=== PATIENT | male | born 1980 | race Caucasian/White ===

== ENCOUNTER → 2016-12-30 | Day surgery (SDC) | payer OTHER ==
[~2016-12-30] MED LIST: BUPIVACAINE HCL PF 0.25% 30 ML VIAL ONE; BUPIVACAINE/EPINEPHRINE 0.5% PF 30 ML VIAL ONE; CIPR500T4 PO; KETOROLAC TROMETHAMINE 30 MG/ML (IVP) VIAL IV PUSH ONE; LACTATED RINGER'S 1000 ML INJ 1,000 ML ONE; LIDOCAINE 1.5%/EPINEPHrine 1:200,000 PF SOLN 30 ML AMP ONE; MIDAZOLAM HCL 2 MG/2 ML VIAL ONE; ONDANSETRON HCL 4 MG/2 ML VIAL IV PUSH ONE; PROPOFOL 200 MG/20 ML AMP IV ONE; RANI300T PO; SODIUM CHLORIDE 0.9% INJ 10 ML ONE; ZYRT10TA12 PO
--- NOTE | 2016-12-30 18:48 | TN ---
cc: REENA PATEL M.D. DATE OF SURGERY 12/30/2016 PREOPERATIVE DIAGNOSIS Lipomatous masses of the mid abdomen, right forearm, left forearm, right lateral back, right medial back, right lower back. PROCEDURE Excision of lipomatous masses-1) midabdomen 4 cm with two-layer closure.2) Right forearm 3 cm with single layer closure. 3) Left forearm 3 cm with single layer closure. 4) Right lateral back 4 cm with two-layer closure. 5) Right medial back 5 cm with two-layer closure. 6) Right lower back 4 cm with two-layer closure. SURGEON Dr. Reena Patel ANESTHESIA General. INDICATIONS This is a pleasant 36-year-old gentleman who has developed multiple palpable subcutaneous masses consistent with lipomas who has had increase in size in the masses and discomfort associated with the masses. He is desirous of surgical excision. INTRAOPERATIVE FINDINGS Successful removal of the masses as discussed above. All sent to pathology for permanent section. ESTIMATED BLOOD LOSS Less than 5 ml. DESCRIPTION OF PROCEDURE IN DETAIL The patient identified as Lopez Colunga taken to the operating room and placed in the supine position. Sequential compression devices were placed on bilateral lower extremities. Following induction of adequate general anesthesia with a laryngeal mask, a time-out procedure was performed. Following completion of time-out procedure to everyone's satisfaction within the room, the patient's abdomen and bilateral upper extremities were prepped and draped in usual sterile fashion with Betadine. Proposed incisions were made with a marking pen and local anesthetic 0.5% Marcaine with epinephrine was infiltrated. The attention was turned first to the abdomen. A transverse incision was made overlying the palpable mass with a scalpel and hemostasis controlled with electrocautery. The mass was from surrounding subcutaneous fatty tissue using Metzenbaum scissors spreading tissue and the mass popped out of the wound and was completely divided from adventitial tissue posteriorly using scissors. The mass was passed off field for pathologic evaluation. Small bleeding points were controlled with electrocautery. Once the wound was assured to be dry, it was closed in two layers with 3-0 Vicryl and 4-0 Monocryl. It was dressed with Mastisol and one-half inch brown Steri-Strips. Attention was turned to the right forearm. Local anesthetic was placed and the incision was carried out with scalpel overlying the palpable subcutaneous mass. The mass was from surrounding tissues using Metzenbaum scissors, spreading and cutting adventitial tissue. The mass was then squeezed out of the wound and posterior attachments divided with scissors. Mass was passed off field for pathologic evaluation. Small bleeding points were controlled with electrocautery. The wound was closed with interrupted inverted 4-0 Monocryl subcuticular sutures and dressed with Mastisol and one-half inch brown Steri-Strips. Attention was turned to the left forearm. The proposed incision was infiltrated with local anesthetic and carried out with scalpel. The subcutaneous palpable lipomatous mass was from surrounding tissues using Metzenbaum scissors and it popped out of the wound and was removed in its entirety as the other two masses were. Small bleeding points were controlled with electrocautery. Once the wound was assured to be dry, it was closed with interrupted, inverted 4-0 Monocryl subcuticular sutures and dressed with Mastisol and one-half inch brown Steri-Strips. The patient was then placed in the left lateral decubitus position with an axillary roll and all pressure points padded with a tomas bag and pillows. The right side of the back was prepped and draped in usual sterile fashion with Betadine. Proposed transverse incisions overlying the palpable subcutaneous masses in the three locations were made with a marking pen and infiltrated with local anesthetic. Attention was turned first to the right lower back palpable mass. Incision was carried out with scalpel and dissection continued posteriorly through the thick skin in the back. The lipomatous mass was from surrounding tissues using Metzenbaum scissors and removed in its entirety and passed off field for pathologic evaluation. Small bleeding points were controlled with electrocautery. The wound was closed in two layers with 3-0 Vicryl and 4-0 Monocryl and dressed with Mastisol and one-half inch brown Steri-Strips. Attention was turned to the right lateral back palpable mass. Beneath the proposed incision, local anesthetic had been placed. The incision was carried out with a scalpel and the subcutaneous lipomatous mass was from surrounding tissues using Metzenbaum scissors, removed in its entirety and passed off field for pathologic evaluation. Small bleeding points were control electrocautery. The wound was closed in two layers with 3-0 Vicryl and 4-0 Monocryl. Dressings were applied with Mastisol and one-half inch brown Steri-Strips. Attention was turned to the right medial back palpable lipomatous mass. Local anesthetic and been placed. The incision was carried out with scalpel and dissection continued posteriorly until the mass was encountered. It was from surrounding subcutaneous fatty tissue using Metzenbaum scissors, removed in its entirety and passed off field for pathologic evaluation. Small bleeding points were controlled with electrocautery. Once the wound was assured to be dry it was closed in two layers with 3-0 Vicryl and 4-0 Monocryl. Dressing was applied with Mastisol and one-half inch brown Steri-Strips. The patient tolerated the procedures without apparent complication. Sponge, needle and instrument counts were correct at the case. MD MEREDITH Kulkarni/MAJO /2:56 PM /6:36 PM ABHI
== END | disposition home or self-care (01) ==
LOC: ESDC 11:24
PROVIDERS: ATTEND Surgery Trauma Surgery
DX: D17.1 Benign lipomatous neoplasm of skin and subcutaneous tissue of trunk (principal); D17.21 Benign lipomatous neoplasm of skin and subcutaneous tissue of right arm; D17.22 Benign lipomatous neoplasm of skin and subcutaneous tissue of left arm
CPT/HCPCS: 00300; 00400; 21931; 22903; 25071; 88304; J1885; J2250; J2405; J3010; J7120